=== PATIENT | female | born 1995 | race African-American/Black ===

== ENCOUNTER 2016-07-20 15:18 | Emergency (ER) | payer MEDICAID ==
[~2016-07-20] VITALS: Ht 160 cm; Wt 50.0 kg
[~2016-07-20 15:18] MED LIST: CEPH-443 PO; HYDR-906 PO; IBUP-1542 PO; ULT50 PO
[2016-07-20 15:25] VITALS: Ht 160 cm; Wt 50.0 kg
[2016-07-20] MEDS ORDERED: HYDROCODONE/APAP (5/325) TAB PO ONE (17:30)
--- NOTE | 2016-07-20 19:42 | RADRPT ---
PROCEDURE: XR Chest. CLINICAL INDICATION: Pain. TECHNIQUE: Single frontal chest x-ray. COMPARISON: None. FINDINGS: The cardiomediastinal silhouette is unremarkable. The lungs are clear. No focal infiltrate is seen. There is no pleural effusion. There is no pneumothorax. There is a levoscoliosis of the upper th oracic spine.. IMPRESSION: 1. No active disease. 2. Levoscoliosis of the upper thoracic spine. RPTAT: HMVK .Celestino Franklin MD, Date Time Electronically viewed and signed by .Celestino Franklin MD, on 07/20/2016 19:42 .K/
--- NOTE | 2016-07-20 19:43 | RADRPT ---
PROCEDURE: XR right Femur. CLINICAL INDICATION: Pain. TECHNIQUE: Two views of the right femur were obtained. COMPARISON: No prior studies are available for comparison. FINDINGS: Proximal aspect of the right humerus excluded. There is no fracture. Joint relationships are maint ained. Bone mineralization is within normal limits. Soft tissues are unremarkable. IMPRESSION: 1. No acute abnormality. 2. Proximal aspect of the right humerus excluded on this series. RPTAT: HMVK .Celestino rFanklin MD, Date Time Electronically viewed and signed by .Celestino Franklin MD, on 07/20/2016 19:43 .K/
--- NOTE | 2016-07-20 19:44 | RADRPT ---
AMENDMENT: 07/20/2016 7:48:55 PM Celestino Franklin MD ADDENDUM: Corrected Report: PROCEDURE: XR Pelvis. CLINICAL INDICATION: Trauma. Pain. TECHNIQUE: Single AP view of the pelvis. COMPARISON: X-ray right hip 07/14/2016. FINDINGS: There is redemonstrated deformity of the mid right superior and inferior pubic ramus without a defin ite displaced fracture. There is no dislocation of the right or left hip. There is minimal cortica l irregularity at the superior medial aspect of the left superior pubic ramus. Remainder of the bony pelvis is unremarkable. Bone mineralization is within normal limits. Soft tissues unremarkable. IMPRESSION: Persistent slight deformity of the mid diaphysis of the right superior and inferior pubic ramus whic h remains suspicious for a nondisplaced fractures.. Small cortical irregularity of the superior medi al aspect of the left superior pubic ramus suspicious for a minimally displaced fracture. PROCEDURE: XR Pelvis. CLINICAL INDICATION: Trauma. Pain. TECHNIQUE: Single AP view of the pelvis. COMPARISON: No prior studies are available for comparison. FINDINGS: There is no fracture. Hips are unremarkable. Joint relationships are maintained. Bone mineralizat ion is within normal limits. Soft tissues are unremarkable. Bowel gas pattern is unremarkable. IMPRESSION: Negative examination. RPTAT: HMVK .Celestino Franklin MD, Date Time Electronically viewed and signed by .Celestino Franklin MD, MD on 07/20/2016 19:48 .K/
--- NOTE | 2016-07-20 19:47 | RADRPT ---
PROCEDURE: XR Right Hip. CLINICAL INDICATION: Trauma. Pain. TECHNIQUE: AP and frog lateral views of the right hip were performed. COMPARISON: 07/14/2016 FINDINGS: There is redemonstrated deformity of the mid right superior and inferior pubic ramus without a defin ite displaced fracture. There is no dislocation of the right hip. There is minimal cortical irregu larity at the superior medial aspect of the left superior pubic ramus. Bone mineralization is withi n normal limits. Soft tissues unremarkable. IMPRESSION: Persistent slight deformity of the mid diaphysis of the right superior and inferior pubic ramus whic h remains suspicious for a nondisplaced fractures.. Small cortical irregularities superior medial as pect of the left superior pubic ramus suspicious for a minimally displaced fracture. RPTAT: HMVK .Celestino Franklin MD, Date Time Electronically viewed and signed by .Celestino Franklin MD, on 07/20/2016 19:46 .K/
[2016-07-20] MEDS ORDERED: D-ME473S18 PO (20:02)
[2016-07-20] MEDS ORDERED: HYDR-906 PO (20:02)
[2016-07-20] MEDS ORDERED: AZIT250T94 PO (20:02)
--- NOTE | 2016-07-20 20:08 | ERD ---
ER Documentation Chief Complaint Date/Time DATE: 07/20/16 TIME: 20:05 Chief Complaint COUGH & CHEST CONGESTION. PAIN IN CHEST & PELVIS WHEN COUGHING. HPI This is a 20-year-old female presents to the ER with a cough and chest congestion for the last 3 days. Patient states that cough is severe and constant in that it causes her to have chest pain and pelvic pain whenever she is coughing. She denies any shortness of breath. Patient does have a hip fracture because she fell off of a pole after pole dancing. Patient denies any dizziness, weakness. Cough is productive and constant, it is worse at night. ROS 12 point review of systems was done, all negative except per HPI. Medications Home Meds Active Scripts Hydrocodone/Acetaminophen ([place] 5-325 Tablet) 1 Each Tablet, 1 TAB PO Q6H Y for PAIN, #20 TAB Prov:MONIQUE JACKSON 07/20/16 Dextromethorphan Hb-Promethazine Hcl (Promethazine DM Syrup) 473 Ml Syrup, 10 ML PO Q6H Y for COUGH, #4 OZ Prov:MONIQUE JACKSON 07/20/16 Azithromycin* (Zithromax*) 250 Mg Tablet, 250 MG PO .ZPACK DIRECTED, #6 TAB TAKE 500 MG (2 TABS) THE FIRST DAY THEN 250 MG (1 TAB) DAYS 2-5 Prov:MONIQUE JACKSON 07/20/16 Cephalexin* (Keflex*) 500 Mg Capsule, 500 MG PO QID for 5 Days, CAP Prov:DALIA APONTE NP 07/15/16 Hydrocodone/Acetaminophen ([place] 5-325 Tablet) 1 Each Tablet, 1 TAB PO Q6H Y for PAIN, #20 TAB Prov:DALIA APONTE CONDOMINIUM MANAGER 07/15/16 Ibuprofen* (Motrin*) 600 Mg Tab, 600 MG PO Q6H Y for PAIN AND OR ELEVATED TEMP, #30 TAB Prov:DALIA APONTE CONDOMINIUM MANAGER 07/15/16 Tramadol HCl (Tramadol HCl) 50 Mg Tablet, 50 MG PO Q4 Y for PAIN, #20 TAB Prov:JACQUELYN ARCE 09/06/15 Allergies Allergies: Coded Allergies: No Known Allergy (Unverified , 07/14/16) PMhx/Soc History of Surgery: No Anesthesia Reaction: No Hx Neurological Disorder: No Hx Respiratory Disorders: No Hx Cardiac Disorders: No Hx Psychiatric Problems: No Hx Miscellaneous Medical Probl: Yes (SICKLE CELL TRAIT) Hx Alcohol Use: No Hx Substance Use: Yes (MARIJUANA) Hx Tobacco Use: Yes (1PACK/DAY) Smoking Status: Current some day smoker Physical Exam Vitals Vital Signs Date Time Temp Pulse Resp B/P Pulse Ox O2 Delivery O2 Flow Rate FiO2 07/20/16 15:25 97.5 88 16 117/57 99 Physical Exam GENERAL: The patient is well developed and appropriate for usual state of health , in no apparent distress. HEENT: Atraumatic. CHEST: Clear to auscultation bilaterally. There are no rales, wheezes or rhonchi. HEART: Regular rate and rhythm. No murmurs, clicks, rubs or gallops. ABDOMEN: Soft, nontender and nondistended. Good bowel sounds. No rebound or guarding. No gross peritonitis. No gross organomegaly or masses. No Hernández sign or McBurney point tenderness. BACK: No midline or flank tenderness. EXTREMITIES: Patient is tender to palpation in the left hip. Range of motion is limited secondary to pain. NEURO: Alert and oriented. SKIN: There is no apparent rash or petechia. The skin is warm and dry. Results 24 hrs Current Medications Medications (Trade) Dose Ordered Sig/Lizzy Route PRN Reason Start Time Stop Time Status Last Admin Dose Admin Acetaminophen/ Hydrocodone Bitart ([place] (5/325)) 1 tab ONCE ONCE PO 07/20/16 17:30 07/20/16 17:31 DC 07/20/16 17:13 Procedures/MDM This is a 20-year-old female presents to the ER for a cough. At this time there is no evidence of pneumonia. I do believe patient has bronchitis as cough is fairly severe and patient does have coarse breath sounds. Cough is aggravating hip pain as she coughs hard. X-ray was taken there is no change in status of fracture. I discussed this case with Dr. Owens. Patient's vital signs are stable there is no evidence of bleed. Patient is not hypotensive or tachycardic. She is well-appearing. Patient will be sent home with azithromycin, promethazine, [place]. Patient medical decision making with the patient she understands and agrees with plan. Departure Diagnosis: Primary Impression: Multiple complaints Condition: Stable Patient Instructions: Understanding Hip Fractures, Bronchitis With Wheezing ( Adult) Additional Instructions: Call your primary care doctor TOMORROW for an appointment during the next 1-2 days.See the doctor sooner or return here if your condition worsens before your appointment time. MONIQUE JACKSON Jul 20, 2016 20:08
[2016-07-20 20:19] VITALS: BP 112/62; PULSE 74; RESP 16; TEMP 97.6
== END 2016-07-20 20:24 | disposition home or self-care (01) ==
LOC: FTE 15:18
DX: R05 Cough (principal); R09.89 Other specified symptoms and signs involving the circulatory and respiratory systems; R07.9 Chest pain, unspecified; R10.2 Pelvic and perineal pain; S72.002A Fracture of unspecified part of neck of left femur, initial encounter for closed fracture; F17.210 Nicotine dependence, cigarettes, uncomplicated; W17.89XA Other fall from one level to another, initial encounter; Y92.9 Unspecified place or not applicable
CPT/HCPCS: 71010; 72170; 73510; 73550; Z7502; Z7610

== ENCOUNTER 2017-01-01 15:53 | Emergency (ER) | payer MEDICAID ==
[~2017-01-01] VITALS: Ht 157.5 cm; Wt 50.0 kg
[~2017-01-01 15:53] MED LIST changes: +AZIT250T94 PO; +D-ME473S18 PO; +TRAM50TA2 PO; -ULT50 PO
[2017-01-01 15:54] VITALS: Ht 157.5 cm; Wt 50.0 kg
[2017-01-01] MEDS ORDERED: LORA-441 PO (17:07)
[2017-01-01] MEDS ORDERED: LORAZEPAM 0.5 MG TAB PO ONE (17:30)
--- NOTE | 2017-01-01 17:35 | ERD ---
ER Documentation Chief Complaint Date/Time DATE: 01/01/17 TIME: 17:33 Chief Complaint Anxiety for 1 month. Panic attack starting today. Took old valium today. HPI 21-year-old female complains of anxiety that started this afternoon while she was at work. She states that her hands feel like they are cramping, she was shaking she had palpitations and dizziness. She reports that she has anxiety from when her father , she states that this has not been a problem for many years and had an old Valium prescription. She reports that she called the nurse anxiety hotline and they had advised her take it. She states that she feels much better at this time. Patient denies suicidal ideations. ROS All systems reviewed and are negative except as per history of present illness. Medications Home Meds Active Scripts Lorazepam* (Ativan*) 0.5 Mg Tablet, 0.5 MG PO Q8, #7 TAB Prov:ALICIA MANZANO PA-C 01/01/17 Hydrocodone/Acetaminophen ([place] 5-325 Tablet) 1 Each Tablet, 1 TAB PO Q6H Y for PAIN, #20 TAB Prov:MONIQUE JACKSON 07/20/16 Dextromethorphan Hb-Promethazine Hcl (Promethazine DM Syrup) 473 Ml Syrup, 10 ML PO Q6H Y for COUGH, #4 OZ Prov:MONIQUE JACKSON 07/20/16 Azithromycin* (Zithromax*) 250 Mg Tablet, 250 MG PO .ZPACK DIRECTED, #6 TAB TAKE 500 MG (2 TABS) THE FIRST DAY THEN 250 MG (1 TAB) DAYS 2-5 Prov:MONIQUE JACKSON 07/20/16 Cephalexin* (Keflex*) 500 Mg Capsule, 500 MG PO QID for 5 Days, CAP Prov:DALIA APONTE NP 07/15/16 Hydrocodone/Acetaminophen ([place] 5-325 Tablet) 1 Each Tablet, 1 TAB PO Q6H Y for PAIN, #20 TAB Prov:DALIA APONTE NP 07/15/16 Ibuprofen* (Motrin*) 600 Mg Tab, 600 MG PO Q6H Y for PAIN AND OR ELEVATED TEMP, #30 TAB Prov:DALIA APONTE NP 07/15/16 Tramadol HCl (Tramadol HCl) 50 Mg Tablet, 50 MG PO Q4 Y for PAIN, #20 TAB Prov:JACQUELYN ARCE 09/06/15 Allergies Allergies: Coded Allergies: No Known Allergy (Unverified , 07/14/16) PMhx/Soc Medical and Surgical Hx: pt denies Medical Hx History of Surgery: No Anesthesia Reaction: No Hx Neurological Disorder: No Hx Respiratory Disorders: No Hx Cardiac Disorders: No Hx Psychiatric Problems: Yes (PANIC ATTACK) Hx Miscellaneous Medical Probl: Yes (SICKLE CELL TRAIT) Hx Alcohol Use: No Hx Substance Use: Yes (MARIJUANA) Hx Tobacco Use: Yes (1PACK/DAY) Smoking Status: Current every day smoker Physical Exam Vitals Vital Signs Date Time Temp Pulse Resp B/P Pulse Ox O2 Delivery O2 Flow Rate FiO2 01/01/17 15:54 98.3 102 18 135/88 99 Physical Exam General: Well-appearing, in mild anxiety. No respiratory distress HEENT: Head is normocephalic, atraumatic. Neck: Supple. Nontender. Lungs: Clear to auscultation. Normal air movement. Heart: Regular rate and rhythm. S1 and S2 are normal. No murmurs, gallops, or rubs. Abdomen: Nondistended Extremities: No clubbing or cyanosis. Normal pulses. Moving extremities x 4. No weakness. Neurologic: Alert and oriented 3. No focal deficits. Skin: Normal turgor. No rash or lesions. Results 24 hrs Current Medications Medications (Trade) Dose Ordered Sig/Lizzy Route PRN Reason Start Time Stop Time Status Last Admin Dose Admin Lorazepam (Ativan) 0.5 mg ONCE ONCE PO 01/01/17 17:30 01/01/17 17:30 DC 01/01/17 17:09 Procedures/MDM ED course: Patient was given Ativan 0.5 mg by mouth in the emergency room. MDM: 21-year-old female comes in with acute anxiety reaction. She was treated in the emergency department and reports feeling much better at this time. She does not require any emergent psychiatric evaluation, she is not suicidal, does not show any signs of danger to others danger to self. She will be given 1-2 days worth of Ativan, she states that she does not have a primary care doctor so she will be given a list of community clinics for follow-up. I have advised that further refills should be done through primary care doctor, or psychiatrist with reevaluation. Close follow-up advised. Departure Diagnosis: Primary Impression: Anxiety Condition: Good Patient Instructions: Anxiety Reaction Referrals: [facility] YOU HAVE RECEIVED A MEDICAL SCREENING EXAM AND THE RESULTS INDICATE THAT YOU DO NOT HAVE A CONDITION THAT REQUIRES URGENT TREATMENT IN THE EMERGENCY DEPARTMENT. FURTHER EVALUATION AND TREATMENT OF YOUR CONDITION CAN WAIT UNTIL YOU ARE SEEN IN YOUR DOCTORS OFFICE WITHIN THE NEXT 1-2 DAYS. IT IS YOUR RESPONSIBILITY TO MAKE AN APPOINTMENT FOR FOLOW-UP CARE. IF YOU HAVE A PRIMARY DOCTOR --you should call your primary doctor and schedule an appointment IF YOU DO NOT HAVE A PRIMARY DOCTOR YOU CAN CALL OUR PHYSICIAN REFERRAL HOTLINE AT IF YOU CAN NOT AFFORD TO SEE A PHYSICIAN YOU CAN CHOSE FROM THE FOLLOWING [facility] [address] [facility]. [facility] [address] [facility] [address] [facility] [address] [facility] [address] [facility]. [facility] [address] [facility]. [facility] YOU HAVE RECEIVED A MEDICAL SCREENING EXAM AND THE RESULTS INDICATE THAT YOU DO NOT HAVE A CONDITION THAT REQUIRES URGENT TREATMENT IN THE EMERGENCY DEPARTMENT. FURTHER EVALUATION AND TREATMENT OF YOUR CONDITION CAN WAIT UNTIL YOU ARE SEEN IN YOUR DOCTORS OFFICE WITHIN THE NEXT 1-2 DAYS. IT IS YOUR RESPONSIBILITY TO MAKE AN APPOINTMENT FOR FOLOW-UP CARE. IF YOU HAVE A PRIMARY DOCTOR --you should call your primary doctor and schedule and appointment IF YOU DO NOT HAVE A PRIMARY DOCTOR YOU CAN CALL OUR PHYSICIAN REFERRAL HOTLINE AT . IF YOU CAN NOT AFFORD TO SEE A PHYSICIAN YOU CAN CHOSE FROM THE FOLLOWING [facility] INSTITUTIONS: [facility] [address] [place] [address] [facility] [address] [place] [address] [facility] + [facility] [address] [place] [address] [facility] Additional Instructions: Call your primary care doctor TOMORROW for an appointment during the next 1-2 days.See the doctor sooner or return here if your condition worsens before your appointment time. ALICIA MANZANO PA-C Jan 01, 2017 17:35
== END 2017-01-01 17:24 | disposition home or self-care (01) ==
LOC: FTE 15:53
DX: F41.9 Anxiety disorder, unspecified (principal); F17.210 Nicotine dependence, cigarettes, uncomplicated
CPT/HCPCS: 99283